=== PATIENT | male | born 1990 | race Caucasian/White ===

== ENCOUNTER 2021-09-09 17:44 | Emergency (ER) | payer SELFPAY ==
--- NOTE | ~2021-09-09 | XR_ITS ---
EXAMINATION: XR chest 2V CLINICAL INFORMATION: Reason for Exam cp COMPARISON: None TECHNIQUE: 2 views of the chest XR/XR chest 2V FINDINGS/IMPRESSION: Clear lungs. No pneumothorax. No pleural effusion. Normal cardiomediastinal silhouette.
[2021-09-09 17:51] VITALS: BP 129/84; PULSE 75; RESP 18; TEMP 36.6; O2SAT 99; BMI 36.1
--- NOTE | 2021-09-09 17:57 | ECG_ITS ---
Test Reason : CP Blood Pressure : / mmHG Vent. Rate : 074 BPM Atrial Rate : 074 BPM P-R Int : 150 ms QRS Dur : 094 ms QT Int : 390 ms P-R-T Axes : 031 -08 -01 degrees QTc Int : 432 ms Normal sinus rhythm Normal ECG No previous ECGs available Referred By: Generic ED Physician Electronically Signed By:Donnie Carrillo
--- NOTE | 2021-09-09 18:56 | ED_ITS ---
HPI - General Adult General Chief complaint: General Medical Stated complaint: Chest discomfort Time Seen by Provider: 09/09/21 18:54 Source: patient Mode of arrival: ambulatory Limitations: no limitations History of Present Illness HPI narrative: 30 yo male here with complaints of 2 weeks of nasal congestion, cough, scratchy throat, intermittent nose bleeds, chest discomfort with coughing, diarrhea, ear pain, headache. Using [id number] Tylenol, allergy medicine with continued symptoms. No fevers, chills, neck pain, neck stiffness, rash, difficulty breathing, vomiting, abdominal pain. Related Data Previous Rx's Medication Instructions Recorded amoxicillin 875 mg-potassium 1 tab PO BID #14 tab 09/09/21 clavulanate 125 mg tablet Allergies Allergy/AdvReac Type Severity Reaction Status Date / Time Unable to Assess Allergy Verified 09/09/21 19:13 Review of Systems Review of Systems: Yes all other systems are reviewed and are negative Constitutional: Constitutional: Reports no additional constitutional complaints, Denies body ache(s), Denies chills, Denies fever(s), Reports headache(s) and Denies weakness Eyes: Eyes: Reports no additional eye complaints and Denies change in vision ENT: Reports system reviewed and no additional complaints, except as documented, Denies dizziness, Reports otalgia, Reports headache(s), Reports nasal congestion, Denies nasal discharge, Denies neck pain and Reports sore throat Cardiovascular: Cardiovascular: Reports no additional cardiovascular complaints, Reports chest pain (w/ coughing ), Denies leg edema and Denies dyspnea Respiratory: Respiratory: Reports no additional respiratory complaints, Reports cough and Denies dyspnea Gastrointestinal: Gastrointestinal: Reports no additional gastrointestinal complaints, Denies abdominal pain, Reports diarrhea, Denies nausea and Denies vomiting Genitourinary: Genitourinary: Denies urinary incontinence Musculoskeletal: Musculoskeletal: Reports no additional musculoskeletal complaints, Denies back pain, Denies arthralgias, Denies joint swelling, Denies neck pain, Denies numbness and Denies tingling Integumentary/Breasts: Skin/Breast: Reports system reviewed and no additional complaints, except as docu and Denies rash Neurologic: Reports system reviewed and no additional complaints, except as documented, Denies dizziness, Reports headache(s), Denies numbness, Denies tingling and Denies weakness [facility] Past Medical History Attestation statement: The following information was validated with the patient. Source: old records reviewed and nursing notes reviewed Social History Social History Advance Directives: No Advance Directives Information Provided: No Physical Exam ED Vital Signs: Vital Signs - 24 hr 09/09/21 17:51 09/09/21 19:01 Temperature 98 F 98.8 F Pulse Rate 75 81 Respiratory Rate 18 16 Blood Pressure 129/84 129/81 Pulse Oximetry 99 96 BMI result Body Mass Index 36.1 Const General: cooperative, healthy appearing and comfortable Orientation/consciousness: patient oriented x3 Limitations: no limitations HENMT Head: Yes normal to inspection Ears: hearing grossly normal bilaterally and TM abnormal (Bilateral bulging with no erythema) General nose exam: Normal external nose present Face and sinus: Yes normal facial exam, Yes sinus tenderness (Left maxillary) and Yes other (Bilateral nasal terminate erythema and swelling-no epistaxis) Mouth: Normal oral and palatal mucosa present Throat: Yes posterior oropharynx normal, Yes tonsils normal and Yes uvula midline Eyes General: appearance normal, both eyes and all related structures Pupils: Equal, round and reactive pupils present Neck Neck: Yes normal visual inspection, Yes full ROM, Yes no lymphadenopathy and Yes no meningeal signs Chest Chest palpation & inspection: normal inspection of the chest Resp Effort & Inspection: normal respiratory effort Auscultation: clear to auscultation bilaterally Cardio Rate: regular rate Rhythm: regular rhythm Peripheral pulses: Peripheral pulses 2+ throughout GI Inspection: Yes normal to inspection Palpation (GI): Soft to palpation and nontender General: Yes no CVA tenderness Back/Spine/Pelvis Back: no CVA tenderness Thoracic/Lumbar Spine: thoracic and lumbar spine normal to inspection Skin General skin exam: no rashes or lesions noted Neuro General: patient oriented x3, moves all extremities and no meningeal signs Cranial nerves: Yes Equal, round and reactive pupils present Cognition (Neuro): normal cognition Gait exam (Neuro): Normal gait present Extrem General: Yes normal to inspection, Yes no pedal edema and Yes no calf tenderness Course Course Course Narrative: 30 yo male here with multiple complaints, overwhelmingly positive review of systems. Patient mostly complaining about headache with this congestion of the nose left-sided facial sinus tenderness, ear ache sore throat. Exam is consistent with sinusitis. Triage ordered an EKG and chest x-ray which are unremarkable. Will send fluid COVID testing Reevaluation(s) Reevaluation #1: COVID flu testing is negative. Chest x-ray shows no acute finding. EKG does shows no ischemic changes. Will treat with course of antibiotics for sinusitis. Reviewed worrisome signs and symptoms of when to return to the emergency de partment. Comfortable discharge home. Time: 20:00 Medical Decision Making Medical Records Medical records reviewed: Yes I reviewed the patient's medical records. Lab Data Lab results reviewed: Yes I reviewed the patient's lab results. Labs: Lab Results 09/09/21 09/09/21 Range/Units 19:20 19:20 COVID-19 ([facility]) Negative (Negative) COVID-19 Clin Com See Note Influenza Type A ([facility]) Negative (Negative) Influenza Type B ([facility]EL) Negative (Negative) Influenza A & B Note See Note Imaging Data Chest x-ray: Attestation: I personally reviewed and interpreted this imaging study as follows: Radiologist's impression: Launch?Image [place] [id number] XRay Report Signed Patient: Radhames Rodriguez MR#: [id number] : 1990 Acct:[id number] Age/Sex: 30 / M ADM Date: 09/09/21 Loc: .ED Attending Dr: Ordering Physician: Abraham Burris MD Date of Service: 09/09/21 Procedure(s): XR chest 2V Accession Number(s): [id number] cc: Abraham Burris MD~ EXAMINATION: XR chest 2V CLINICAL INFORMATION: Reason for Exam cp COMPARISON: None TECHNIQUE: 2 views of the chest XR/XR chest 2V FINDINGS/IMPRESSION: ? Clear lungs. ? No pneumothorax. No pleural effusion. ? Normal cardiomediastinal silhouette. ? ECG Data Attestation: I personally reviewed and interpreted this ECG as follows: Interpretation: Normal sinus rhythm with a rate of 74, normal TN, normal QRS, normal QT Discharge Plan Discharge Clinical Impression: Sinusitis Patient Disposition: Home, Self-Care Instructions: Sinusitis (ED) Additional Instructions: Your flu and COVID testing are negative Please take antibiotics as prescribed Increase fluids, rest Alternate Motrin or Tylenol as needed Prescriptions: New amoxicillin-pot clavulanate 875-125 mg tablet 1 tab PO BID Qty: 14 0RF Referrals: Physician,None [Primary Care Provider] - 3 days Interventions: ED Discharge Assessment Last Done: 09/09/21 18:00
[2021-09-09 19:01] VITALS: BP 129/81; PULSE 81; RESP 16; TEMP 37.1; O2SAT 96
[2021-09-09 19:41] LABS: COVID-19 Test Negative (Negative); IDNOW Serial# 16C4AD1C; Influenza A Negative (Negative); Influenza B2 Negative (Negative)
== END 2021-09-09 21:07 | disposition home or self-care (01) ==
PROVIDERS: Nurse Practitioner Family; Emergency Provider Internal Medicine
DX: J32.9 Chronic sinusitis, unspecified (principal); R07.89 Other chest pain; R05.9 Cough, unspecified; Z20.822 Contact with and (suspected) exposure to COVID-19
CPT/HCPCS: 71046; 87502; 87635; 93005; 99283